=== PATIENT | female | born 1960 | race Caucasian/White ===

== ENCOUNTER → 2017-05-20 | Outpatient (CLI) | payer OTHER, MEDICARE ==
[~2017-05-20] MED LIST: BUPIVACAINE MPF 0.25% 10 ML VIAL. ONE; LIDOCAINE 1% PF 30 ML VIAL. ONE
== END | disposition home or self-care (01) ==
LOC: SURG 11:51
PROVIDERS: ATTEND Anesthesiology
DX: M47.816 Spondylosis without myelopathy or radiculopathy, lumbar region (principal); M19.90 Unspecified osteoarthritis, unspecified site; J44.9 Chronic obstructive pulmonary disease, unspecified; Z90.710 Acquired absence of both cervix and uterus; Z96.641 Presence of right artificial hip joint
CPT/HCPCS: 64493; 64494; 64495; J2001; J3490

== ENCOUNTER → 2017-06-24 | Outpatient (CLI) | payer OTHER, MEDICARE | END | disposition home or self-care (01) | LOC: SURG 15:09 | PROVIDERS: ATTEND Anesthesiology | DX: M47.816 Spondylosis without myelopathy or radiculopathy, lumbar region (principal); M19.91 Primary osteoarthritis, unspecified site; J44.9 Chronic obstructive pulmonary disease, unspecified; Z87.01 Personal history of pneumonia (recurrent); Z88.8 Allergy status to other drugs, medicaments and biological substances; Z91.040 Latex allergy status | CPT/HCPCS: 64493; 64494; J2001; J3490 ==

== ENCOUNTER → 2017-07-15 | Outpatient (CLI) | payer OTHER, MEDICARE | END | disposition home or self-care (01) | LOC: SURG 12:50 | PROVIDERS: ATTEND Anesthesiology | DX: M47.817 Spondylosis without myelopathy or radiculopathy, lumbosacral region (principal); G10 Huntington's disease; K21.9 Gastro-esophageal reflux disease without esophagitis | CPT/HCPCS: 99214 ==

== ENCOUNTER → 2017-08-05 | Outpatient (CLI) | payer OTHER, MEDICARE ==
[~2017-08-05] MED LIST changes: +DEXAMETHASONE SOD PHOS 4 MG/ML VIAL ONE; +IV RINGERS SOLUTION,LACTATED 1,000 ML IV ONE; +LIDOCAINE (700MG/PATCH) PATCH. ONE; +LIDOCAINE (700MG/PATCH) PATCH. TD ONE; +MIDAZOLAM HCL PF 2 MG/2 ML VIAL. ONE
== END | disposition home or self-care (01) ==
LOC: SURG 12:10
PROVIDERS: ATTEND Anesthesiology
DX: M47.812 Spondylosis without myelopathy or radiculopathy, cervical region (principal); J44.9 Chronic obstructive pulmonary disease, unspecified; Z98.890 Other specified postprocedural states; Z88.8 Allergy status to other drugs, medicaments and biological substances; Z91.040 Latex allergy status
CPT/HCPCS: 64635; 64636; J1100; J2001; J2250; J3010; J3490; J7120; 99152

== ENCOUNTER → 2017-08-26 | Outpatient (CLI) | payer OTHER, MEDICARE ==
[~2017-08-26] MED LIST changes: -LIDOCAINE (700MG/PATCH) PATCH. ONE; -LIDOCAINE (700MG/PATCH) PATCH. TD ONE
== END | disposition home or self-care (01) ==
LOC: SURG 11:54
PROVIDERS: ATTEND Anesthesiology
DX: M47.816 Spondylosis without myelopathy or radiculopathy, lumbar region (principal); J44.9 Chronic obstructive pulmonary disease, unspecified; M19.90 Unspecified osteoarthritis, unspecified site; Z90.710 Acquired absence of both cervix and uterus; Z87.01 Personal history of pneumonia (recurrent)
CPT/HCPCS: 64635; 64636; J1100; J2001; J2250; J3010; J3490; J7120; 99152

== ENCOUNTER → 2019-06-09 | Outpatient (CLI) | payer OTHER, MEDICARE ==
--- NOTE | 2019-06-16 15:24 | RAD ---
DATE: 06/09/2019 9:25 AM EXAM: DIGITAL SCREEN BILAT W/CAD HISTORY: Screening mammogram COMPARISON: October 28, 2017 and October 14, 2016. Bilateral CC and MLO views of the breasts were performed. This study was interpreted with the benefit of Computerized Aided Detection (CAD). FINDINGS: Breast Density: SCATTERED The breast parenchyma shows scattered fibroglandular densities. Breast parenchyma level B Left breast biopsy clip. Cluster microcalcifications within the left breast 8:00 position, unchanged compared to prior. No suspicious masses, microcalcifications or architectural distortion is present to suggest malignancy in either breast. The visualized axillae are unremarkable. IMPRESSION: Stable bilateral mammograms. BI-RADS CATEGORY: 2 BENIGN FINDING(S) RECOMMENDED FOLLOW-UP: 12M 12 MONTH FOLLOW-UP Annual screening mammography is recommended, unless clinically indicated sooner based on symptoms or change in physical exam. PQRS compliance statement: Patient information was entered into a reminder system with a target due date one year for the next mammogram. Mammography is a sensitive method for finding small breast cancers, but it does not detect them all and is not a substitute for careful clinical examination. A negative mammogram does not negate a clinically suspicious finding and should not result in delay in biopsying a clinically suspicious abnormality. "Our facility is accredited by the [employer] Mammography Program."
== END | disposition home or self-care (01) ==
LOC: MAMMO 09:12
PROVIDERS: ATTEND Family Medicine
DX: Z12.31 Encounter for screening mammogram for malignant neoplasm of breast (principal)
CPT/HCPCS: 77067

== ENCOUNTER 2020-11-28 18:47 | Emergency (ER) | payer MEDICARE ==
[2020-11-28] MEDS ORDERED: ONDANSETRON PF 4 MG/2 ML VIAL. IVP ONE ×2 (19:30→22:15)
[2020-11-28] MEDS ORDERED: IV NORMAL SALINE 1,000ML 1,000 ML IV ONE (19:30)
[2020-11-28] MEDS ORDERED: KETOROLAC 30 MG/ML VIAL. IVP ONE (19:30)
[2020-11-28] MEDS ORDERED: IOHEXOL 300 MG/ML 75 ML VIAL. IV ONE (19:45)
--- NOTE | 2020-11-28 19:50 | PHYS DOC ---
Adult General Chief Complaint Chief Complaint: NAUSEA/VOMITING/DIARRHEA HPI HPI Patient is a 60-year-old female presents to the emergency department with a chief complaint of sudden onset nausea vomiting and diarrhea after eating at [employer] approximately 5 hours ago. Patient states she vomited 4 times noting food particles in her vomitus, denies seeing blood in her vomitus. Patient states she has had at least 16 bouts of watery brown diarrhea, denies seeing any blood in her diarrhea. Patient reports a 10/10 pain on a 1-10 pain scale of her abdomen reporting that it hurts all over. Patient states she has had her appendix and gallbladder removed, and has had a hysterectomy. Patient denies any shortness of breath, chest pain, fever or chills, dizziness, headaches, chest congestion or nasal congestion. Patient denies any allergies to medications. Patient reports a history of [place]'s disease, acid reflux, osteoporosis, a nd bladder surgeries with stents. (CLIFFORD CARCAMO APRN) Review of Systems Review of Systems 14 body systems of review of systems have been reviewed. See HPI for pertinent positives and negative responses, otherwise all other systems are negative, nonpertinent or noncontributory. (CLIFFORD CARCAMO APRN) Current Medications Current Medications Current Medications Medications (Trade) Dose Ordered Sig/Michelle Start Time Stop Time Status Last Admin Dose Admin Iohexol (Omnipaque 300 Mg/ml) 75 ml 1X ONCE 11/28/20 19:45 11/28/20 19:46 UNV Ketorolac Tromethamine (Toradol 30mg Vial) 30 mg 1X ONCE 11/28/20 19:30 11/28/20 19:31 UNV Ondansetron HCl (Zofran) 4 mg 1X ONCE 11/28/20 19:30 11/28/20 19:31 UNV Sodium Chloride 1,000 ml @ 1,000 mls/hr 1X ONCE 11/28/20 19:30 11/28/20 20:29 UNV (CLIFFORD CARCAMO APRN) Allergies Allergies Allergies Coded Allergies Type Severity Reaction Last Updated Verified latex Allergy Unknown 08/05/17 Yes prednisone Allergy Unknown 08/05/17 Yes (CLIFFORD CARCAMO APRN) Physical Exam Physical Exam Constitutional: Well developed, well nourished, no acute distress, non-toxic appearance. 60-year-old female in mild distress. HENT: Normocephalic, atraumatic, bilateral external ears normal, oropharynx moist, no oral exudates, nose normal. Oropharynx moist, pink, no infectious process appreciated, no uvular edema, no laryngeal edema, no lymphadenopathy of the head or neck appreciated. Eyes: PERRLA, EOMI, conjunctiva normal, no discharge. Neck: Normal range of motion, no tenderness, supple, no stridor. No meningismus signs, no nuchal rigidity. Cardiovascular:Heart rate regular rhythm, no murmur, heart sounds S1-S2 auscultation. Lungs & Thorax: Bilateral breath sounds clear to auscultation all lung gilbert, no adventitious lung sounds appreciated. Abdomen: Bowel sounds normal, soft, no tenderness, no masses, no pulsatile masses. Generalized abdominal pain to palpation, no bruising appreciated, old surgical scars. Skin: Warm, dry, no erythema, no rash. No diaphoresis appreciated. Back: No tenderness, no CVA tenderness. Extremities: No tenderness, no cyanosis, no clubbing, ROM intact, no edema. Neurologic: Alert and oriented X 3, normal motor function, normal sensory function, no focal deficits noted. Psychologic: Affect normal, judgement normal, mood normal. (CLIFFORD CARCAMO APRN) EKG EKG [] (CLIFFORD CARCAMO APRN) Radiology/Procedures Radiology/Procedures [] (CLIFFORD CARCAMO APRN) Radiology/Procedures [facility] PATIENT: RENY NGUYEN ACCOUNT: [id number] : 1960 LOCATION: ER AGE: 60 SEX: F EXAM STATUS: REG ER ORD. PHYSICIAN: CLIFFORD CARCAMO APRN REASON: GENERALIZED ABDOMEN PAIN WITH NAUSEA AND VOMITING PROCEDURE: CT ABD PELV W/ IV CONTRST ONLY Examination: CT of the abdomen pelvis with IV contrast HISTORY: History of generalized abdominal pain, nausea, vomiting COMPARISON: None TECHNIQUE: Axial CT images of the abdomen pelvis were performed with IV contrast. Coronal and sagittal reformats are performed. Exposure: One or more of the following individualized dose reduction techniques were utilized for this examination: 1. Automated exposure control 2. Adjustment of the mA and/or kV according to patient size 3. Use of iterative reconstruction technique FINDINGS: The bibasilar lungs are clear. No evidence of free air identified in the abdomen is limited, spleen, adrenals grossly appears unremarkable. Cholecystectomy clips identified. The stomach is mildly distended. The visualized pancreas grossly appears unremarkable. Mild fluid distended small bowel loops in the lower abdomen with mild thickened appearance of the wall of the small bowel. Mild thickened appearance of the wall of the colon throughout with surrounding fat stranding. Urinary bladder is mildly distended. The bilateral kidneys enhance symmetrically. There is 3.5 mm calculus right kidney. Cystic structure identified in the right kidney measuring 1.9 cm likely cyst. Right total hip arthroplasty changes. Sacral stimulator lead identified. Mild degenerative changes lumbar spine. IMPRESSION: 1. Mild thickened appearance of the wall of the colon throughout with surrounding fat stranding likely colitis. 2. Mild fluid distended small bowel loops in the lower abdomen with mild thickened appearance of the wall of the small bowel. Enteritis is a possibility. 3. 3.5 mm calculus right kidney. Electronically signed by: Duke Patel MD (11/28/2020 8:32 PM) [id number] DICTATED AND SIGNED BY: DUKE PATEL MD DATE: 11/28/202018 CC: CLIFFORD CARCAMO APRN; ROSS MANUEL MD; CURLY DOE MD ~[facility] [address] [place] [address] IMAGING REPORT Signed PATIENT: RENY NGUYEN ACCOUNT: [id number] : 1960 LOCATION: ER AGE: 60 SEX: F EXAM STATUS: REG ER ORD. PHYSICIAN: CLIFFORD CARCAMO APRN REASON: GENERALIZED ABDOMEN PAIN WITH NAUSEA AND VOMITING PROCEDURE: CT ABD PELV W/ IV CONTRST ONLY Examination: CT of the abdomen pelvis with IV contrast HISTORY: History of generalized abdominal pain, nausea, vomiting COMPARISON: None TECHNIQUE: Axial CT images of the abdomen pelvis were performed with IV contrast. Coronal and sagittal reformats are performed. Exposure: One or more of the following individualized dose reduction techniques were utilized for this examination: 1. Automated exposure control 2. Adjustm ent of the mA and/or kV according to patient size 3. Use of iterative reconstruction technique FINDINGS: The bibasilar lungs are clear. No evidence of free air identified in the abdomen is limited, spleen, adrenals grossly appears unremarkable. Cholecystectomy clips identified. The stomach is mildly distended. The visualized pancreas grossly appears unremarkable. Mild fluid distended small bowel loops in the lower abdomen with mild thickened appearance of the wall of the small bowel. Mild thickened appearance of the wall of the colon throughout with surrounding fat stranding. Urinary bladder is mildly distended. The bilateral kidneys enhance symmetrically. There is 3.5 mm calculus right kidney. Cystic structure identified in the right kidney measuring 1.9 cm likely cyst. Right total hip arthroplasty changes. Sacral stimulator lead identified. Mild degenerative changes lumbar spine. IMPRESSION: 1. Mild thickened appearance of the wall of the colon throughout with surrounding fat stranding likely colitis. 2. Mild fluid distended small bowel loops in the lower abdomen with mild thickened appearance of the wall of the small bowel. Enteritis is a possibility. 3. 3.5 mm calculus right kidney. Electronically signed by: Duke Patel MD (11/28/2020 8:32 PM) [id number] DICTATED AND SIGNED BY: DUKE PATEL MD DATE: 11/28/202018 CC: CLIFFORD CARCAMO APRN; ROSS MANUEL MD; CURLY DOE MD ~[facility] [address] [place] [address] IMAGING REPORT Signed PATIENT: RENY NGUYEN ACCOUNT: [id number] : 1960 LOCATION: ER AGE: 60 SEX: F EXAM STATUS: REG ER ORD. PHYSICIAN: CLIFFORD CARCAMO APRN REASON: GENERALIZED ABDOMEN PAIN WITH NAUSEA AND VOMITING PROCEDURE: CT ABD PELV W/ IV CONTRST ONLY Examination: CT of the abdomen pelvis with IV contrast HISTORY: History of generalized abdominal pain, nausea, vomiting COMPARISON: None TECHNIQUE: Axial CT images of the abdomen pelvis were performed with IV contrast. Coronal and sagittal reformats are performed. Exposure: One or more of the following individualized dose reduction techniques were utilized for this examination: 1. Automated exposure control 2. Adjustment of the mA and/or kV according to patient size 3. Use of iterative reconstruction technique FINDINGS: The bibasilar lungs are clear. No evidence of free air identified in the abdomen is limited, spleen, adrenals grossly appears unremarkable. Cholecystectomy clips identified. The stomach is mildly distended. The visualized pancreas grossly appears unremarkable. Mild fluid distended small bowel loops in the lower abdomen with mild thickened appearance of the wall of the small bowel. Mild thickened appearance of the wall of the colon throughout with surrounding fat stranding. Urinary bladder is mildly distended. The bilateral kidneys enhance symmetrically. There is 3.5 mm calculus right kidney. Cystic structure identified in the right kidney measuring 1.9 cm likely cyst. Right total hip arthroplasty changes. Sacral stimulator lead identified. Mild degenerative changes lumbar spine. IMPRESSION: 1. Mild thickened appearance of the wall of the colon throughout with s urrounding fat stranding likely colitis. 2. Mild fluid distended small bowel loops in the lower abdomen with mild thickened appearance of the wall of the small bowel. Enteritis is a possibility. 3. 3.5 mm calculus right kidney. Electronically signed by: Duke Patel MD (11/28/2020 8:32 PM) [id number] DICTATED AND SIGNED BY: DUKE PATEL MD DATE: 11/28/202018 CC: CLIFFORD CARCAMO APRN; ROSS MANUEL MD; CURLY DOE MD ~[facility] 0 (CURLY DOE MD) Heart Score C/O Chest Pain: No Risk Factors: Risk Factors: DM, Current or recent (<one month) smoker, HTN, HLP, family history of CAD, obesity. Risk Scores: Risk Factors: DM, Current or recent (<one month) smoker, HTN, HLP, family history of CAD, obesity. (CLIFFORD CARCAMO APRN) Course & Med Decision Making Course & Med Decision Making Pertinent Labs and Imaging studies reviewed. (See chart for details) 60-year-old female, vital signs reviewed, presents emergency department concerning nausea vomiting diarrhea after eating at [employer]. Physical examination concerning for food poisoning versus gastroenteritis. Ordered 1 L normal saline, 4 mg Zofran, saline lock, CBC, CMP, lipase, CT abdomen pelvis with IV contrast. End of shift report given to Dr. Doe. Discussed patient case with ED attending physician Dr. Doe who has assumed patient care at this time. (CLIFFORD CARCAMO APRN) Course & Med Decision Making Discussed options of care with patient and . Admission versus discharge home. They have elected to try home hydration and antibiotics. Risk and benefits discussed at length. Questions answered. Patient to take Cipro 500 mg twice a day. Patient take Flagyl 500 mg 3 times a day. Remain on a clear fluid diet for the next 48 hours. No solids. No milk products. Must allow bowel rest. May take Zofran for active vomiting.. Follow-up with primary care. Return if any concerns. Impression: 1. Acute gastroenteritis-viral versus food poisoning 2. CT findings of acute enteritis and colitis 3. History of [place]'s disease 4. Mild leukocytosis of 13.1 5. Mild elevation of glucose 131. 6. Dehydration (CURLY DOE MD) Dragon Disclaimer Dragon Disclaimer This electronic medical record was generated, in whole or in part, using a voice recognition dictation system. (CLIFFORD CARCAMO APRN) Departure Departure: Referrals: ROSS MANUEL MD (PCP) Scripts Ondansetron Hcl (ZOFRAN) 4 Mg Tablet 8 MG PO QIDPRN PRN for NAUSEA, #30 TAB Prov: CURLY DOE MD 11/29/20 Metronidazole (FLAGYL) 500 Mg Tablet 500 MG PO TID for colitis for 14 Days, #42 TAB Prov: CURLY DOE MD 11/29/20 Ciprofloxacin (CIPRO) 500 Mg/5 Ml Jessica.mc.rec 500 MG PO twice a day for coliitis for 7 Days, MISC Prov: CURLY DOE MD 11/29/20 Dragon Disclaimer This chart was dictated in whole or in part using Voice Recognition software in a busy, high-work load, and often noisy Emergency Department environment. It may contain unintended and wholly unrecognized errors or omissions. (CURLY DOE MD) Attending Signature Attending Signature I have participated in the care of this patient and I have reviewed and agree with all pertinent clinical information above including history, exam, and recommendations. (CURLY DOE MD) CLIFFORD CARCAMO APRN Nov 28, 2020 19:50 CURLY DOE MD Nov 29, 2020 00:18
[2020-11-28 20:25] LABS: BASO # 0.2 x10^3/uL (0.0-0.2); BASO % 1 % (0-3); EOS % 0 % (0-3); HEMATOCRIT 43.7 % (36.0-47.0); HEMOGLOBIN 14.4 g/dL (12.0-15.5); LYMPH # 0.3 x10^3/uL (1.0-4.8); LYMPH % 3 % (24-48); MEAN CORPUSCULAR HEMOGLOBIN 28 pg (25-35); MEAN CORPUSCULAR HGB CONC 33 g/dL (31-37); MEAN CORPUSCULAR VOLUME 86 fL (79-100); MONO # 0.4 x10^3/uL (0.0-1.1); MONO % 3 % (0-9); NEUT # 12.1 x10^3uL (1.8-7.7); NEUT % 93 % (31-73); PLATELET COUNT 305 x10^3/uL (140-400); RED BLOOD COUNT 5.07 x10^6/uL (3.50-5.40); RED CELL DISTRIBUTION WIDTH 13.4 % (11.5-14.5); WHITE BLOOD COUNT 13.1 x10^3/uL (4.0-11.0)
[2020-11-28 20:32] LABS: CALCIUM 9.3 mg/dL (8.5-10.1); CREATININE 0.9 mg/dL (0.6-1.0); GFR 64.3; POTASSIUM 3.8 mmol/L (3.5-5.1)
--- NOTE | 2020-11-28 20:34 | RAD ---
Examination: CT of the abdomen pelvis with IV contrast HISTORY: History of generalized abdominal pain, nausea, vomiting COMPARISON: None TECHNIQUE: Axial CT images of the abdomen pelvis were performed with IV contrast. Coronal and sagitta l reformats are performed. Exposure: One or more of the following individualized dose reduction techniques were utilized for thi s examination: 1. Automated exposure control 2. Adjustment of the mA and/or kV according to patient size 3. Use of iterative reconstruction technique FINDINGS: The bibasilar lungs are clear. No evidence of free air identified in the abdomen is limited, spleen, adrenals grossly appears unremarkable. Cholecystectomy clips identified. The stomach is mildly disten ded. The visualized pancreas grossly appears unremarkable. Mild fluid distended small bowel loops in the lower abdomen with mild thickened appearance of the wall of the small bowel. Mild thickened appea carlos of the wall of the colon throughout with surrounding fat stranding. Urinary bladder is mildly d istended. The bilateral kidneys enhance symmetrically. There is 3.5 mm calculus right kidney. Cystic structure identified in the right kidney measuring 1.9 cm likely cyst. Right total hip arthroplasty changes. Sacral stimulator lead identified. Mild degenerative changes colten mbar spine. IMPRESSION: 1. Mild thickened appearance of the wall of the colon throughout with surrounding fat stranding like ly colitis. 2. Mild fluid distended small bowel loops in the lower abdomen with mild thickened appearance of the wall of the small bowel. Enteritis is a possibility. 3. 3.5 mm calculus right kidney. Electronically signed by: Duke Patel MD (11/28/2020 8:32 PM) [id number]
[2020-11-28 20:38] LABS: ALBUMIN/GLOBULIN RATIO 0.9 (1.0-1.7); TOTAL BILIRUBIN 0.6 mg/dL (0.2-1.0); TOTAL PROTEIN 8.5 g/dL (6.4-8.2)
[2020-11-28 22:39] LABS: BILIRUBIN,URINE NEG (NEG); CLARITY,URINE CLEAR; COLOR,URINE YELLOW; GLUCOSE,URINE NEG (NEG)
[2020-11-28 22:40] LABS: BACTERIA,URINE 0 /HPF (0-FEW); NITRITE,URINE NEG (NEG); RBC,URINE 0 /HPF (0-2); SQUAMOUS EPITHELIAL CELL,UR OCC /LPF; UROBILINOGEN,URINE 0.2 mg/dL (0.2 mg/dL); WBC,URINE OCC /HPF (0-4)
[2020-11-29 00:35] VITALS: BP 102/73
[2020-11-29] MEDS ORDERED: ONDA4TAB7 PO (00:37)
[2020-11-29] MEDS ORDERED: METR500T PO (00:37)
[2020-11-29] MEDS ORDERED: CIPR500S2 PO (00:37)
[2020-11-29] MEDS ORDERED: metroNIDAZOLE 500 MG TABLET PO ONE (01:00)
[2020-11-29] MEDS ORDERED: CIPROFLOXACIN HCL 500 MG TABLET PO ONE (01:00)
== END 2020-11-29 00:40 | disposition home or self-care (01) ==
LOC: ER 18:47
DX: A08.4 Viral intestinal infection, unspecified (principal); K52.9 Noninfective gastroenteritis and colitis, unspecified; G10 Huntington's disease; D72.829 Elevated white blood cell count, unspecified; E86.0 Dehydration; Z91.040 Latex allergy status; Z88.8 Allergy status to other drugs, medicaments and biological substances
CPT/HCPCS: 36415; 74177; 80053; 81001; 83690; 85025; 96361; 96374; 96375; 99285; J1885; J2405; J7030; Q9967

== ENCOUNTER 2020-12-03 09:48 | Emergency (ER) | payer MEDICARE ==
[~2020-12-03] VITALS: Ht 165.1 cm; Wt 74.5 kg
[~2020-12-03 09:48] MED LIST changes: -BUPIVACAINE MPF 0.25% 10 ML VIAL. ONE; +CIPR500S2 PO; -DEXAMETHASONE SOD PHOS 4 MG/ML VIAL ONE; -IV RINGERS SOLUTION,LACTATED 1,000 ML IV ONE; -LIDOCAINE 1% PF 30 ML VIAL. ONE; +METR500T PO; -MIDAZOLAM HCL PF 2 MG/2 ML VIAL. ONE; +ONDA4TAB7 PO
[2020-12-03 10:02] VITALS: BP 131/91
[2020-12-03] MEDS ORDERED: CETIRIZINE HCL 10 MG TABLET PO STA (10:26)
--- NOTE | 2020-12-03 10:33 | PHYS DOC ---
Past History Past Medical History: COPD, Other Additional Past Medical Histor: [place] Past Surgical History: Appendectomy, Cholecystectomy, Hysterectomy Alcohol Use: None General Adult EDM: Chief Complaint: ALLERGIES HPI: HPI: 60-year-old female presents with complaints of allergies. She states that her scalp has been very itchy and her face has been itchy the last 24 to 36 hours. She tells me that she has "lots of allergies". She does not know what they are. She has not been taking any medications for this. She has had allergy injections in the past. She thinks she might need to get them again. Patient has an unusual affect but her states this is normal for her. Patient has no other specific complaints. Review of Systems: Review of Systems: Constitutional: Denies fever or chills Eyes: Denies change in visual acuity HENT: Denies nasal congestion or sore throat Respiratory: Denies cough or shortness of breath Cardiovascular: Denies chest pain or edema GI: Denies abdominal pain, nausea, vomiting, bloody stools or diarrhea : Denies dysuria Musculoskeletal: Denies back pain or joint pain Integument: Pruritic scalp Neurologic: Denies headache, focal weakness or sensory changes Endocrine: Denies polyuria or polydipsia Lymphatic: Denies swollen glands Psychiatric: Denies depression or anxiety Allergies: Allergies: Allergies Coded Allergies Type Severity Reaction Last Updated Verified latex Allergy Unknown 08/05/17 Yes prednisone Allergy Unknown 08/05/17 Yes Physical Exam: PE: Constitutional: Well developed, well nourished, no acute distress, non-toxic appearance. [] HENT: Normocephalic, atraumatic, bilateral external ears normal, oropharynx moist, no oral exudates, nose normal. [] Eyes: PERRLA, EOMI, conjunctiva normal, no discharge. [] Neck: Normal range of motion, no tenderness, supple, no stridor. [] Cardiovascular: Heart rate regular rhythm, no murmur [] Lungs & Thorax: Bilateral breath sounds clear to auscultation [] Abdomen: Bowel sounds normal, soft, no tenderness, no masses, no pulsatile masses. [] Skin: Warm, dry, no erythema, no rash. No obvious rash of the scalp or face. [] Back: No tenderness, no CVA tenderness. [] Extremities: No tenderness, no cyanosis, no clubbing, ROM intact, no edema. [] Neurologic: Chorionic movements and speech. Alert and oriented X 3, normal motor function, normal sensory function, no focal deficits noted. [] Psychologic: Affect normal, judgement normal, mood normal. [] Current Patient Data: Vital Signs: Vital Signs Date Time Temp Pulse Resp B/P (MAP) Pulse Ox O2 Delivery O2 Flow Rate FiO2 12/03/20 10:02 97.8 129 16 131/91 (104) 98 Room Air EKG: EKG: [] Radiology/Procedures: Radiology/Procedures: [] Heart Score: C/O Chest Pain: No Risk Factors: Risk Factors: DM, Current or recent (<one month) smoker, HTN, HLP, family history of CAD, obesity. Risk Scores: Score 0 - 3: 2.5% MACE over next 6 weeks - Discharge Home Score 4 - 6: 20.3% MACE over next 6 weeks - Admit for Clinical Observation Score 7 - 10: 72.7% MACE over next 6 weeks - Early Invasive Strategies Course & Med Decision Making: Course & Med Decision Making Pertinent Labs and Imaging studies reviewed. (See chart for details) The patient's complaint is rather vague. I offered to do a short course of prednisone for the itching as well as cetirizine. She appears to be allergic to prednisone so I will give her the cetirizine here. I have advised that she continue to take this at home and follow-up with her primary care physician on tomorrow to discuss further allergy treatment. She is stable for discharge at this time. [] Daina Disclaimer: Daina Disclaimer: This electronic medical record was generated, in whole or in part, using a voice recognition dictation system. Departure Departure: Impression: Primary Impression: Seasonal allergies Disposition: HOME HEALTH CARE SERVICE Condition: STABLE Referrals: SILVER STALLINGS DO (PCP) Patient Instructions: Allergies, Generic, Cetirizine tablets JEOVANY CONLEY DO Dec 03, 2020 10:33
== END 2020-12-03 10:52 | disposition home health service (06) ==
LOC: ER 09:48
DX: J30.2 Other seasonal allergic rhinitis (principal); J44.9 Chronic obstructive pulmonary disease, unspecified; Z91.040 Latex allergy status; Z88.5 Allergy status to narcotic agent
CPT/HCPCS: 99282

== ENCOUNTER 2021-03-18 18:03 | Emergency (ER) | payer MEDICARE ==
[~2021-03-18] VITALS: Ht 165.1 cm; Wt 74.5 kg
--- NOTE | 2021-03-18 19:17 | PHYS DOC ---
Past History Past Medical History: COPD, Other Additional Past Medical Histor: [place] Past Surgical History: Appendectomy, Cholecystectomy, Hysterectomy Additional Past Surgical Histo: bladder, stents Alcohol Use: None General Adult EDM: Chief Complaint: TONGUE SWELLING/INJURY HPI: HPI: 60-year-old female presents with tongue swelling. The patient has been having intermittent tongue swelling for the last 3 months. She has been seen her primary physician about it. She is currently on some amount of prednisone but she is not sure how much. It seems to come and go at random. She denies any new or changed medications. Is not necessarily any worse today than another day. She denies fever or chills. Review of Systems: Review of Systems: Constitutional: Denies fever or chills Eyes: Denies change in visual acuity HENT: Tongue swelling Respiratory: Denies cough or shortness of breath Cardiovascular: Denies chest pain or edema GI: Denies abdominal pain, nausea, vomiting, bloody stools or diarrhea : Denies dysuria Musculoskeletal: Denies back pain or joint pain Integument: Denies rash Neurologic: Denies headache, focal weakness or sensory changes Endocrine: Denies polyuria or polydipsia Lymphatic: Denies swollen glands Psychiatric: Denies depression or anxiety Allergies: Allergies: Allergies Coded Allergies Type Severity Reaction Last Updated Verified latex Allergy Unknown 08/05/17 Yes prednisone Allergy Unknown 08/05/17 Yes Physical Exam: PE: Constitutional: Well developed, well nourished, no acute distress, non-toxic appearance. [] HENT: Normocephalic, atraumatic, bilateral external ears normal, oropharynx moist, prominent tongue, normal uvula, no oral exudates, nose normal. [] Eyes: PERRLA, EOMI, conjunctiva normal, no discharge. [] Neck: Normal range of motion, no tenderness, supple, no stridor. [] Cardiovascular: Heart rate regular rhythm, no murmur [] Lungs & Thorax: Bilateral breath sounds clear to auscultation [] Abdomen: Bowel sounds normal, soft, no tenderness, no masses, no pulsatile masses. [] Skin: Warm, dry, no erythema, no rash. No urticaria [] Back: No tenderness, no CVA tenderness. [] Extremities: No tenderness, no cyanosis, no clubbing, ROM intact, no edema. [] Neurologic: Alert and oriented X 3, normal motor function, normal sensory function, no focal deficits noted. [] Psychologic: Affect normal, judgement normal, mood normal. [] Current Patient Data: Vital Signs: Vital Signs Date Time Temp Pulse Resp B/P (MAP) Pulse Ox O2 Delivery O2 Flow Rate FiO2 03/18/21 18:25 97.2 70 16 164/74 (104) 98 EKG: EKG: [] Radiology/Procedures: Radiology/Procedures: [] Heart Score: C/O Chest Pain: N/A Risk Factors: Risk Factors: DM, Current or recent (<one month) smoker, HTN, HLP, family history of CAD, obesity. Risk Scores: Score 0 - 3: 2.5% MACE over next 6 weeks - Discharge Home Score 4 - 6: 20.3% MACE over next 6 weeks - Admit for Clinical Observation Score 7 - 10: 72.7% MACE over next 6 weeks - Early Invasive Strategies Course & Med Decision Making: Course & Med Decision Making Pertinent Labs and Imaging studies reviewed. (See chart for details) The patient has a slightly elevated white count. She is on multiple medications and it is possible that 1 of these could be causing his intermittent swelling but does not seem as likely since it comes and goes and none of her medications have changed. Her CRP was normal. Sed rate complement C4 are pending as they are send outs. I told her she should follow-up with her primary care physician and consider ENT consult. She is stable for discharge at this time. [] eNllyon Disclaimer: Daina Disclaimer: This electronic medical record was generated, in whole or in part, using a voice recognition dictation system. Departure Departure: Impression: Primary Impression: Mild tongue swelling Disposition: HOME / SELF CARE / HOMELESS Condition: STABLE Referrals: SIVLER STALLINGS DO (PCP) Patient Instructions: Angioedema, [id number] JEOVANY CONLEY DO Mar 18, 2021 19:17
[2021-03-18 19:39] LABS: BASO # 0.1 x10^3/uL (0.0-0.2); BASO % 1 % (0-3); EOS # 0.2 x10^3/uL (0.0-0.7); EOS % 2 % (0-3); HEMOGLOBIN 12.6 g/dL (12.0-15.5); LYMPH # 2.6 x10^3/uL (1.0-4.8); LYMPH % 22 % (24-48); MEAN CORPUSCULAR HEMOGLOBIN 29 pg (25-35); MEAN CORPUSCULAR HGB CONC 33 g/dL (31-37); MEAN CORPUSCULAR VOLUME 88 fL (79-100); MONO # 0.8 x10^3/uL (0.0-1.1); MONO % 6 % (0-9); NEUT # 8.4 x10^3uL (1.8-7.7); NEUT % 69 % (31-73); PLATELET COUNT 324 x10^3/uL (140-400); RED BLOOD COUNT 4.31 x10^6/uL (3.50-5.40); WHITE BLOOD COUNT 12.1 x10^3/uL (4.0-11.0)
[2021-03-18 19:45] LABS: CALCIUM 8.6 mg/dL (8.5-10.1); CREATININE 0.9 mg/dL (0.6-1.0); GFR 64.3; POTASSIUM 3.8 mmol/L (3.5-5.1)
[2021-03-18 19:51] LABS: ALBUMIN 3.2 g/dL (3.4-5.0); C REACTIVE PROTEIN 0.8 mg/L (0-3.3); TOTAL BILIRUBIN 0.3 mg/dL (0.2-1.0); TOTAL PROTEIN 6.3 g/dL (6.4-8.2)
[2021-03-18 20:15] VITALS: BP 156/70
[2021-03-18 20:44] LABS: SEDIMENTATION RATE 17 (0-25)
== END 2021-03-18 20:20 | disposition home or self-care (01) ==
LOC: ER 18:03
DX: R22.0 Localized swelling, mass and lump, head (principal); D72.829 Elevated white blood cell count, unspecified; J44.9 Chronic obstructive pulmonary disease, unspecified; Z90.49 Acquired absence of other specified parts of digestive tract; Z90.710 Acquired absence of both cervix and uterus; Z91.040 Latex allergy status; Z88.8 Allergy status to other drugs, medicaments and biological substances
CPT/HCPCS: 36415; 80053; 85025; 85651; 86140; 86160; 99283

== ENCOUNTER 2021-08-07 08:40 | Emergency (ER) | payer MEDICARE ==
[~2021-08-07] VITALS: Ht 165.1 cm; Wt 74.5 kg
--- NOTE | 2021-08-07 08:54 | PHYS DOC ---
Past History Past Medical History: COPD, Other Additional Past Medical Histor: [place] Past Surgical History: Appendectomy, Cholecystectomy, Hysterectomy Additional Past Surgical Histo: bladder, stents Alcohol Use: None General Adult EDM: Chief Complaint: MECHANICAL FALL HPI: HPI: 60-year-old female presents with left elbow pain. The patient has [place]'s disease. She fell at [employer] yesterday. Her body weight landed on her left elbow. It is generally sore and she cannot brush her hair with that arm. She has sustained arm fractures from similar falls in the past and wants to make sure is not broken. Patient has no other complaints at this time. Review of Systems: Review of Systems: Constitutional: Denies fever or chills Eyes: Denies change in visual acuity HENT: Denies nasal congestion or sore throat Respiratory: Denies cough or shortness of breath Cardiovascular: Denies chest pain or edema GI: Denies abdominal pain, nausea, vomiting, bloody stools or diarrhea : Denies dysuria Musculoskeletal: Left elbow pain Integument: Denies rash Neurologic: Denies headache, focal weakness or sensory changes Endocrine: Denies polyuria or polydipsia Lymphatic: Denies swollen glands Psychiatric: Denies depression or anxiety Allergies: Allergies: Allergies Coded Allergies Type Severity Reaction Last Updated Verified latex Allergy Unknown 08/07/21 Yes prednisone Allergy Unknown 08/07/21 Yes Physical Exam: PE: Constitutional: Well developed, well nourished, no acute distress, non-toxic appearance. [] HENT: Normocephalic, atraumatic, bilateral external ears normal, oropharynx moist, no oral exudates, nose normal. [] Eyes: PERRLA, EOMI, conjunctiva normal, no discharge. [] Neck: Normal range of motion, no tenderness, supple, no stridor. [] Cardiovascular: Heart rate regular rhythm, no murmur [] Lungs & Thorax: Bilateral breath sounds clear to auscultation [] Abdomen: Bowel sounds normal, soft, no tenderness, no masses, no pulsatile masses. [] Skin: Warm, dry, no erythema, no rash. [] Back: No tenderness, no CVA tenderness. [] Extremities: Tenderness of the left lateral elbow, minimal swelling, no ecchymosis or obvious deformity [] Neurologic: Alert and oriented X 3, normal motor function, normal sensory function, no focal deficits noted. [] Psychologic: Affect normal, judgement normal, mood normal. [] EKG: EKG: [] Radiology/Procedures: Radiology/Procedures: [] Impressions: EXAM: Left elbow, 3 views. HISTORY: Fall. COMPARISON: None. FINDINGS: 3 views of the right elbow are obtained. There is a displaced fracture of the coronoid process of the proximal ulna. There is also deformity of the radial head suggesting a minimally displaced fracture. There is no associated elbow effusion. IMPRESSION: Displaced fracture of the coronoid process of the proximal ulna and likely the radial head. Elbow effusion. Electronically signed by: Aaliyah Chandra MD (08/07/2021 9:25 AM) [id number] DICTATED AND SIGNED BY: AALIYAH CHANDRA MD DATE: 08/07/21923 CC: JEOVANY CONLEY DO; SILVER STALLINGS DO ~MTH0 0 Heart Score: C/O Chest Pain: N/A Risk Factors: Risk Factors: DM, Current or recent (<one month) smoker, HTN, HLP, family history of CAD, obesity. Risk Scores: Score 0 - 3: 2.5% MACE over next 6 weeks - Discharge Home Score 4 - 6: 20.3% MACE over next 6 weeks - Admit for Clinical Observation Score 7 - 10: 72.7% MACE over next 6 weeks - Early Invasive Strategies Course & Med Decision Making: Course & Med Decision Making Pertinent Labs and Imaging studies reviewed. (See chart for details) The patient has a fracture of the coronoid process and the radial head. We will place her in a splint and sling and advised that she follow-up with orthopedics. She is stable for discharge at this time. [] Dragon Disclaimer: Dragon Disclaimer: This electronic medical record was generated, in whole or in part, using a voice recognition dictation system. Departure Departure: Impression: Primary Impression: Elbow fracture, left Qualified Codes: S42.402A - Unspecified fracture of lower end of left humerus, initial encounter for closed fracture Additional Impression: Radial head fracture, closed Qualified Codes: S52.125A - Nondisplaced fracture of head of left radius, initial encounter for closed fracture Disposition: 01 HOME / SELF CARE / HOMELESS Condition: STABLE Referrals: SILVER STALLINGS DO (PCP) Additional Instructions: Please follow-up with orthopedics for management of your fractures. You can call the [facility] orthopedic group at [phone] or another orthopedic surgeon of your choice. JEOVANY CONLEY DO Aug 07, 2021 08:54
--- NOTE | 2021-08-07 09:28 | RAD ---
EXAM: Left elbow, 3 views. HISTORY: Fall. COMPARISON: None. FINDINGS: 3 views of the right elbow are obtained. There is a displaced fracture of the coronoid proc ess of the proximal ulna. There is also deformity of the radial head suggesting a minimally displaced fracture. There is no associated elbow effusion. IMPRESSION: Displaced fracture of the coronoid process of the proximal ulna and likely the radial hea d. Elbow effusion. Electronically signed by: Aaliyah Chandra MD (08/07/2021 9:25 AM) [id number]
[2021-08-07] MEDS ORDERED: HYDR-2759 PO (10:36)
== END 2021-08-07 10:39 | disposition home or self-care (01) ==
LOC: ER 08:40
DX: S42.402A Unspecified fracture of lower end of left humerus, initial encounter for closed fracture (principal); S52.125A Nondisplaced fracture of head of left radius, initial encounter for closed fracture; J44.9 Chronic obstructive pulmonary disease, unspecified; Z95.5 Presence of coronary angioplasty implant and graft; G10 Huntington's disease; Z91.040 Latex allergy status; Z88.5 Allergy status to narcotic agent; W18.39XA Other fall on same level, initial encounter; Y93.89 Activity, other specified; Y92.89 Other specified places as the place of occurrence of the external cause; Y99.8 Other external cause status
CPT/HCPCS: 29125; 73080; 99283

== ENCOUNTER 2021-08-20 17:00 | Emergency (ER) | payer MEDICARE ==
[~2021-08-20] VITALS: Ht 165.1 cm; Wt 68.2 kg
[~2021-08-20 17:00] MED LIST changes: +HYDR-2759 PO
[2021-08-20 19:19] VITALS: BP 159/96
[2021-08-20 20:09] LABS: BILIRUBIN,URINE NEG (NEG); CLARITY,URINE HAZY; COLOR,URINE YELLOW; GLUCOSE,URINE NEG (NEG); UROBILINOGEN,URINE 0.2 mg/dL (0.2 mg/dL)
[2021-08-20 20:10] LABS: BACTERIA,URINE MOD /HPF (0-FEW); NITRITE,URINE NEG (NEG); RBC,URINE OCC /HPF (0-2); SQUAMOUS EPITHELIAL CELL,UR MOD /LPF; WBC,URINE >40 /HPF (0-4)
[2021-08-20] MEDS ORDERED: NITR100C62 PO (20:27)
--- NOTE | 2021-08-20 20:27 | PHYS DOC ---
Past History Past Medical History: COPD, Other Additional Past Medical Histor: [place]'s disease (PATRICA ROSSI APRN) Past Surgical History: Cholecystectomy, Hip Replacement, Hysterectomy, Other Additional Past Surgical Histo: carpal tunnel surgery, cyst removal (PATRICA ROSSI APRN) Smoking: Non-smoker Alcohol Use: None (PATRICA ROSSI APRN) General Adult EDM: Chief Complaint: PAIN ON URINATION HPI: HPI: Patient is a 60-year-old female that presents today with painful urination since 2 PM today. Patient states around 2 today she started noticing her urine was dark in color and was painful to urinate. She denies fever and chills or abdominal pain. Patient does have a splint on her left arm she states that she fell about a week ago at [facility] and she is already been evaluated for the arm injury. (PATRICA ROSSI APRN) Review of Systems: Review of Systems: Constitutional: Denies fever or chills Eyes: Denies change in visual acuity HENT: Denies nasal congestion or sore throat Respiratory: Denies cough or shortness of breath Cardiovascular: Denies chest pain or edema GI: Denies abdominal pain, nausea, vomiting, bloody stools or diarrhea : dysuria Musculoskeletal: Denies back pain or joint pain Integument: Denies rash Neurologic: Denies headache, focal weakness or sensory changes Endocrine: Denies polyuria or polydipsia Lymphatic: Denies swollen glands Psychiatric: Denies depression or anxiety (PATRICA ROSSI APRN) Allergies: Allergies: Allergies Coded Allergies Type Severity Reaction Last Updated Verified latex Allergy Unknown 08/20/21 Yes prednisone Allergy Unknown 08/20/21 Yes (PATRICA ROSSI APRN) Physical Exam: PE: Constitutional: Well developed, well nourished, no acute distress, non-toxic appearance. [] HENT: Normocephalic, atraumatic, bilateral external ears normal, oropharynx moist, no oral exudates, nose normal. [] Eyes: PERRLA, EOMI, conjunctiva normal, no discharge. [] Neck: Normal range of motion, no tenderness, supple, no stridor. [] Cardiovascular:Heart rate regular rhythm, no murmur [] Lungs & Thorax: Bilateral breath sounds clear to auscultation [] Abdomen: Bowel sounds normal, soft, no tenderness, no masses, no pulsatile masses. [] Skin: Warm, dry, no erythema, no rash. [] Back: No tenderness, no CVA tenderness. [] Extremities: No tenderness, no cyanosis, no clubbing, ROM intact, no edema. [] Neurologic: Alert and oriented X 3, normal motor function, normal sensory function, no focal deficits noted. [] Psychologic: Affect normal, judgement normal, mood normal. [] (PATRICA ROSSI APRN) Current Patient Data: Labs: Laboratory Tests Test 08/20/21 19:35 Urine Collection Type Clean catch Urine Color Yellow Urine Clarity Hazy Urine pH 5.5 Urine Specific Traer 1.010 Urine Protein Neg (NEG-TRACE) Urine Glucose (UA) Neg mg/dL (NEG) Urine Ketones (Stick) Neg mg/dL (NEG) Urine Blood Trace (NEG) Urine Nitrite Neg (NEG) Urine Bilirubin Neg (NEG) Urine Urobilinogen Dipstick 0.2 mg/dL (0.2 mg/dL) Urine Leukocyte Esterase Mod (NEG) Urine RBC Occ /HPF (0-2) Urine WBC >40 /HPF (0-4) Urine Squamous Epithelial Cells Mod /LPF Urine Bacteria Mod /HPF (0-FEW) Vital Signs: Vital Signs Date Time Temp Pulse Resp B/P (MAP) Pulse Ox O2 Delivery O2 Flow Rate FiO2 08/20/21 19:19 98.2 87 18 159/96 (117) 97 Room Air (PATRICA ROSSI APRN) EKG: EKG: [] (PATRICA ROSSI APRN) Radiology/Procedures: Radiology/Procedures: [] (PATRICA ROSSI APRN) Heart Score: C/O Chest Pain: N/A Risk Factors: Risk Factors: DM, Current or recent (<one month) smoker, HTN, HLP, family history of CAD, obesity. Risk Scores: Score 0 - 3: 2.5% MACE over next 6 weeks - Discharge Home Score 4 - 6: 20.3% MACE over next 6 weeks - Admit for Clinical Observation Score 7 - 10: 72.7% MACE over next 6 weeks - Early Invasive Strategies (PATRICA ROSSI APRN) Course & Med Decision Making: Course & Med Decision Making Pertinent Labs and Imaging studies reviewed. (See chart for details) Patient is resting quietly in the bed, will send antibiotic for UTI to her pharmacy, will send her urine off for culture. Patient is agreeable to the plan of care. (PATRICA ROSSI APRN) Dragon Disclaimer: Dragon Disclaimer: This electronic medical record was generated, in whole or in part, using a voice recognition dictation system. (PATRICA ROSSI APRN) Attending Co-Sign The patient was seen and interviewed as well as examined at the bedside. The chart was reviewed. The case was discussed. Agree with the plan of care. (JEOVANY CONLEY DO) Departure Departure: Impression: Primary Impression: UTI (urinary tract infection) Qualified Codes: N30.01 - Acute cystitis with hematuria Disposition: HOME / SELF CARE / HOMELESS Condition: LEFT WITHOUT BEING SEEN Referrals: SILVER STALLINGS DO (PCP) Patient Instructions: Urinary Tract Infection Additional Instructions: Macrobid take 1 tablet twice daily for 5 days Tylenol and/or ibuprofen as needed for fever and pain Follow-up with your primary care physicians if symptoms last greater than 5 days. Scripts Nitrofurantoin Monohyd/M-Cryst (MACROBID 100 MG CAPSULE) 100 Mg Capsule 100 CAP PO BID for UTI for 5 Days, #10 CAP Prov: PATRICA ROSSI APRN 08/20/21 PATRICA ROSSI APRN Aug 20, 2021 20:27 JEOVANY CONLEY DO Aug 22, 2021 14:23
[2021-08-20] MEDS ORDERED: NITROFURANTOIN MONOHYD/M-CRYST 100 MG CAPSULE. PO ONE (20:45)
== END 2021-08-20 20:44 | disposition home or self-care (01) ==
LOC: ER 17:00
DX: N30.01 Acute cystitis with hematuria (principal); J44.9 Chronic obstructive pulmonary disease, unspecified; Z90.49 Acquired absence of other specified parts of digestive tract; Z90.710 Acquired absence of both cervix and uterus; Z91.040 Latex allergy status; Z88.8 Allergy status to other drugs, medicaments and biological substances
CPT/HCPCS: 81001; 87086; 99283